=== PATIENT | female | born 1975 | race Two or more races ===

== ENCOUNTER 2018-02-09 03:35 | Emergency (ER) | payer OTHER ==
[~2018-02-09] VITALS: Ht 167.6 cm; Wt 108.9 kg
[2018-02-09] MEDS ORDERED: LEVOTHYROXINE25 MCG PO (05:40)
[2018-02-09] MEDS ORDERED: INTESTINEX680 M1 PO (13:40)
[2018-02-09] MEDS ORDERED: AMOX-CLAV 875-1 EACH PO (13:40)
== END 2018-02-09 16:40 | disposition home or self-care (01) ==
LOC: ER 03:35
DX: L02.211 Cutaneous abscess of abdominal wall (principal); B95.61 Methicillin susceptible Staphylococcus aureus infection as the cause of diseases classified elsewhere